=== PATIENT | male | born 1950 | race American Indian/Alaskan Native ===

== ENCOUNTER → 2017-01-29 | Outpatient (CLI) | payer BC, OTHER ==
[2017-01-29 09:02] LABS: CHLORIDE,CL 108 mmol/L (98-110); SODIUM,NA 137 mmol/L (136-146)
== END ==
LOC: MW.LAB 08:19
PROVIDERS: ATTEND Orthopaedic Surgery
DX: E11.65 Type 2 diabetes mellitus with hyperglycemia (principal)
CPT/HCPCS: 36415; 80053; 81003; 82044

== ENCOUNTER → 2017-02-18 | Outpatient (CLI) | payer BC, OTHER ==
--- NOTE | 2017-02-18 12:45 | US ---
EXAMINATION: Aortic ultrasound HISTORY: AAA screening COMPARISON: None TECHNIQUE: Grayscale and color Doppler images obtained of the aorta. FINDINGS: The aorta measures 1.4 cm and the distal aorta measures 0.9 cm. The right and left common iliac arteries measure 0.8 and 0.6 cm respectively. No abdominal aortic aneurysm identified. IMPRESSION: Normal abdominal aorta.
== END | disposition home or self-care (01) ==
LOC: MW.US 08:29
DX: Z13.6 Encounter for screening for cardiovascular disorders (principal); Z72.0 Tobacco use
CPT/HCPCS: 76775; 76775-26

== ENCOUNTER → 2017-03-25 | Outpatient (CLI) | payer BC, OTHER ==
--- NOTE | 2017-03-27 17:43 | ECHO ---
The echocardiogram report can be seen in this patient's EMR in the Reports section. MADDISON
== END ==
LOC: MW.US 09:27
PROVIDERS: ATTEND Orthopaedic Surgery
DX: I25.9 Chronic ischemic heart disease, unspecified (principal); I34.0 Nonrheumatic mitral (valve) insufficiency
CPT/HCPCS: 93306

== ENCOUNTER 2017-06-06 10:28 | Day surgery (SDC) | payer BC, OTHER ==
[~2017-06-06 10:28] MED LIST: Lactated Ringers 1,000 ML IV SCH
--- NOTE | 2017-06-06 11:20 | PCM.PREANE ---
Preanesthetic Assessment - Anesthesia/Transfusion/Family Hx Anesthesia History: Prior Anesthesia Without Reaction Family History of Anesthesia Reaction: No Transfusion History: No Prior Transfusion(s) - Review of Systems General: No Symptoms Pulmonary: No Symptoms Cardiovascular: No Symptoms Gastrointestinal: No symptoms Neurological: No Symptoms Other: Reports: None - Physical Assessment NPO Status Date: 06/05/17 NPO Status Time: 20:30 O2 Sat by Pulse Oximetry: 95 Respiratory Rate: 16 Vital Signs: Last Vital Signs Temp 36.4 C 06/06/17 10:46 Pulse 54 L 06/06/17 10:46 Resp 16 06/06/17 10:46 BP 126/72 06/06/17 10:46 Pulse Ox 95 06/06/17 10:46 Height: 1.73 m Weight: 102.512 kg ASA Class: 3 Mental Status: Alert & Oriented x3 Airway Class: Mallampati = 2 Dentition: Reports: Normal Dentition ROM/Head Extension: Full Lungs: Clear to auscultation, Normal respiratory effort Cardiovascular: Regular Rate, Regular Rhythm - Lab Values: Laboratory Last Values POC Glucose 152 mg/dL (60-110) H 06/06/17 10:55 - Allergies Allergies/Adverse Reactions: Allergies Allergy/AdvReac Type Severity Reaction Status Date / Time No Known Allergies Allergy Verified 12/24/16 10:04 - Anesthesia Plan Pre-Op Medication Ordered: None - Acknowledgements Anesthesia Type Planned: MAC Pt an Appropriate Candidate for the Planned Anesthesia: Yes Alternatives and Risks of Anesthesia Discussed w Pt/Guardian: Yes Pt/Guardian Understands and Agrees with Anesthesia Plan: Yes Additional Comments: PMH: CAD, had stent x 15 years, had stent obstruction and restented several years later. On aspirin until 2 months ago. continues to take metoprelol anf SUSHMA inhibitor. has DM@ sugars run 120-160, smoker, denies GERD. PreAnesthesia Questionnaire Cardiovascular History: Reports: CAD, High Cholesterol, Hypertension, SC, Stents Other Cardiovascular History: ? SC, Pt not sure, Gastrointestinal History: Musculoskeletal History: Reports: Fracture Other Musculoskeletal History: fx arm as a child Endocrine/Metabolic History: Reports: Diabetes, Type II, Obesity/BMI 30+ - Past Surgical History Head Surgeries/Procedures: Reports: None Cardiovascular Surgical History: Reports: Coronary Artery Stent Musculoskeletal Surgical History: Reports: Carpal Tunnel - SUBSTANCE USE Smoking Status *Q: Current Some Day Smoker Tobacco Use Within Last Twelve Months: Cigarettes Recreational Drug Use History: No - HOME MEDS Home Medications: Home Meds Metoprolol Succinate 12.5 mg PO DAILY 12/24/16 [History] Multivitamin [Multivitamins] 1 tab PO DAILY 12/24/16 [History] atorvaSTATin Calcium [Atorvastatin Calcium] 40 mg PO BEDTIME 12/24/16 [History] Aspirin [[place] Aspirin] 81 mg PO DAILY 05/31/17 [History] Gluc HCl/Csa/Marian Hy/Hyalur Ac [Glucosamine Chondroitin] 1 tab PO DAILY [History] [place]-3/DHA/Epa/Fish Oil [[place]-3 Fish Oil 1,000 MG Sfgl] 1,000 mg PO DAILY 06/10 [History] Ramipril [Altace] 10 mg PO DAILY 05/31/17 [History] Ubidecarenone [Co Q-10] 100 mg PO DAILY 05/31/17 [History] metFORMIN HCl [Metformin HCl] 500 mg PO BID 05/31/17 [History] - CURRENT (IN HOUSE) MEDS Current Meds: Current Medications Lactated Ringer's (Ringers, Lactated) 1,000 mls @ 125 mls/hr IV ASDIRECTED [facility] Last Admin: 06/06/17 10:47 Dose: 125 mls/hr
[2017-06-06] MEDS ORDERED: Midazolam 1 MG/ML 2 ML SDV ONE (12:05)
[2017-06-06] MEDS ORDERED: Lidocaine 2% 5 ML SDV ONE (12:05)
[2017-06-06] MEDS ORDERED: Propofol 200 MG/20 ML SDV ONE (12:05)
[2017-06-06] MEDS ORDERED: fentaNYL 100 MCG/2 ML SDV ONE (12:05)
--- NOTE | 2017-06-06 12:52 | PCM.OPNOTE ---
- General Post-Op/Procedure Note Date of Surgery/Procedure: 06/06/17 Operative Procedure(s): colonoscopy w snare polypectomy Findings: see dict [id number] Pre Op Diagnosis: scrn colonoscopy Post-Op Diagnosis: polyp and diverticulosis Anesthesia Technique: Moderate sedation Primary Surgeon: José Prieto Pathology: 5 mm sessile polyp X 2, at 50cm when scope went in; L colon Complications: None Condition: Good
--- NOTE | 2017-06-06 12:57 | PCM.POSTAN ---
POST ANESTHESIA ASSESSMENT - MENTAL STATUS Mental Status: alert - RESPIRATORY Respiratory Status: respiratory rate WNL, airway patent - CARDIOVASCULAR CV Status: pulse rate WNL, blood pressure stable - GASTROINTESTINAL GI Status: no symptoms - PAIN Pain Score: 0 - POST OP HYDRATION Hydration Status: adequate & stable - OBSERVATIONS Free Text/Narrative:: no anesthesia problems
[2017-06-06 13:26] VITALS: BP 101/58
--- NOTE | 2017-06-06 13:41 | OR ---
SURGEON: José Prieto MD DATE OF PROCEDURE: 06/06/2017 PREOPERATIVE DIAGNOSIS: Screening colonoscopy. POSTOPERATIVE DIAGNOSES: Colon polyp and diverticulosis. COMPLICATIONS: None. PROCEDURE PERFORMED: Colonoscopy with snare polypectomy and biopsy. FINDINGS: 1. The patient is easily sedated with PICKER PACKER and Diprivan. The patient is soundly snoring. 2. The patient's colon was rather straight forward. Cecum indicated by ileocecal fold, one-to-one indentation, and light emittance is not observed and appendiceal orifice is not observed. Mucosa examined upon scope pulling out and the patient's bowel prep is suboptimum. It could be bad and so the study is compromised with constant irrigation. Large amount of opaque liquid stool and semi stool coating the mucosa. The patient has diverticulosis on the left colon. No signs or symptoms of diverticulitis. No inflammation, stricture, ulceration, bleeding, or growth. The patient does have 2 small polyp. A 5 mm sessile right at distance 50 cm when the scope go in, a little bit distal to the splenic flexure and was removed. One was removed with snare polypectomy and captured and another one was removed with cold biopsy forceps. The patient also has mild internal hemorrhoids. The patient would benefit from repeat colonoscopy 5 years from today or if clinically indicated otherwise or if the polyp indicated otherwise. DESCRIPTION OF PROCEDURE: The patient was taken to the endoscopy room. A time out was called, patient identified, and procedure identified. Diprivan was then administrated. Patient went from awake to sleep, hearing doctor talking or door closing is normal. Perineum inspection and digital examination were then performed. A well- lubricated colonoscope was gently inserted through the rectum, advanced past the rectosigmoid junction, the descending colon, splenic flexure, transverse colon, hepatic flexure, ascending colon, arrived to the cecum. Cecum was identified as dictated in the finding. Then the scope was carefully withdrawn while attention was paid to the mucosal surface for any abnormality. Air will be sucked out during the scope withdrawal. At the rectum, retroflexed to examine any rectal diseases, fistula or hemorrhoids. During mucosal examination, 2 sessile polyp, 5 mm each, at distance 50 cm when scope went it, were encountered; one removed by snare, another one removed by cold bx forcep; The Patient tolerated procedure well. There were no intraoperative complications, and Dr. Prieto was present throughout the whole procedure. As always, thank you for the kind referral. CELENA MCKEON /[id number] MADDISON
== END 2017-06-06 13:25 | disposition home or self-care (01) ==
LOC: MW.SDS 10:28
PROVIDERS: ATTEND Surgery
PROC: 0DBE8ZZ Excision of Large Intestine, Via Natural or Artificial Opening Endoscopic (ICD-10-PCS; principal; 2017-06-06)
PROC: 0DBE8ZZ Excision of Large Intestine, Via Natural or Artificial Opening Endoscopic (ICD-10-PCS; 2017-06-06)
DX: Z12.11 Encounter for screening for malignant neoplasm of colon (principal); D12.6 Benign neoplasm of colon, unspecified; K57.30 Diverticulosis of large intestine without perforation or abscess without bleeding; K64.8 Other hemorrhoids; G56.02 Carpal tunnel syndrome, left upper limb; I25.10 Atherosclerotic heart disease of native coronary artery without angina pectoris; E11.9 Type 2 diabetes mellitus without complications; E78.00 Pure hypercholesterolemia, unspecified; F17.210 Nicotine dependence, cigarettes, uncomplicated; I25.2 Old myocardial infarction; E66.9 Obesity, unspecified; Z95.5 Presence of coronary angioplasty implant and graft; Z98.890 Other specified postprocedural states; Z79.82 Long term (current) use of aspirin; Z79.84 Long term (current) use of oral hypoglycemic drugs; Z79.899 Other long term (current) drug therapy; Z68.34 Body mass index [BMI] 34.0-34.9, adult
CPT/HCPCS: 45380; 45385; 82962; J2250; J3010; J7120; 00810; 88305; J2704

== ENCOUNTER 2023-06-19 14:01 | Emergency (ER) | payer OTHER, BC ==
[2023-06-19] MEDS ORDERED: Lidocaine 1% PF 2 ML SDV INJECT ONE ×2 (14:03→14:37)
[2023-06-19] MEDS ORDERED: Diphtheria,Pertussis(Acell),Tetanus Vaccine 0.5 ML Syringe IM ONE (14:37)
[2023-06-19] MEDS ORDERED: Bacitracin Oint 1 GM U/D Packet TOP ONE (14:37)
[2023-06-19 17:07] VITALS: BP 143/65; PULSE 52
== END 2023-06-19 15:30 | disposition home or self-care (01) ==
LOC: MW.ED 14:01
DX: S51.811A Laceration without foreign body of right forearm, initial encounter (principal); I25.10 Atherosclerotic heart disease of native coronary artery without angina pectoris; I10 Essential (primary) hypertension; I25.2 Old myocardial infarction; E78.00 Pure hypercholesterolemia, unspecified; E11.9 Type 2 diabetes mellitus without complications; E66.9 Obesity, unspecified; Z68.27 Body mass index [BMI] 27.0-27.9, adult; Z79.82 Long term (current) use of aspirin; Z79.899 Other long term (current) drug therapy; Z79.84 Long term (current) use of oral hypoglycemic drugs; W45.0XXA Nail entering through skin, initial encounter
CPT/HCPCS: 12005; 90471; 90715; 99282-25; 99283; J3490